=== PATIENT | male | born 1955 | race Caucasian/White ===

== ENCOUNTER 2023-03-03 03:14 | Emergency (ER) | payer OTHER ==
--- OUTSIDE RECORDS SUMMARY | 2023-03-03 03:18 | XMS REPORT | Continuity of Care Document ---
:[address] [facility] t Address [address] [place] [address] Care Team Providers Name Role Phone Raeann Tee MD Primary Care Physician [phone] Gildardo Cronin Attending Clinician Unavailable Doctor Unassigned, [place] Attending Clinician Unavailable SAMSON GALLEGOS Attending Clinician Unavailable Al Coy MD Attending Clinician Samson Gallegos DO Attending Clinician Raeann Tee MD Attending Clinician RAEANN TEE Attending Clinician Unavailable KRISHNA CRUZ Attending Clinician Unavailable KRISHNA CRUZ Attending Clinician Unavailable Najma Fountain RN Attending Clinician Moraima Ruiz DO Attending Clinician Jacqueline Arreaga MD Attending Clinician Gildardo Cronin Admitting Clinician Unavailable SAMSON GALLEGOS Admitting Clinician Unavailable Samson Gallegos DO Admitting Clinician Jacqueline Arreaga MD Admitting Clinician Payers Payer Name Policy Type Policy Number Effective Date Expiration Date Harmeet MARCIAL O [id number] 1590-10-05 00:00:00 Problems Condition Condition Condition Status Onset Resolution Last Treating Co mments Source Name Details Category Date Date Treatment Clinician Date Chest Chest Disease Active Univers pain, pain, 7-12 [place]y [place] type d type 00 Medical [facility] Chronic Chronic Disease Active Univers combined combined 7-12 ity of systolic systolic 00:00: [place] and and 00 Medical diastolic diastolic Bran ch congestive congestive heart heart failure failure Dyslipidem Dyslipidem Disease Active U nivers ia ia 7-14 ity of 00:00: [place] [facility] S/P CABG S/P CABG Disease Active Unive rs (coronary (coronary 7-14 ity of artery artery 00:00: [place] bypass bypass 00 Medical graft) graft) Branch Ventricula Ventricula Disease Active U nivers r r 7-13 ity of tachycardi tachycardi [place] a a 00 [place] Troponin I Troponin I Disease Active U nivers above above 7-01 [place] reference [place] 00:[place] range range 00 [place] 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 [place] Essential Essential Disease Active Uni vers hypertensi hypertensi 2-22 it y of on on 00:00: [place] [facility] Hyperchole Hyperchole Disease Active U nivers sterolemia sterolemia 2-22 it y of 00:00: [place] 00 Medical Branch Acute ND Acute ND Disease Active Unive rs 2-22 ity of 00:00: [place] 00 Medical Branch Coronary Coronary Disease Active Unive rs artery artery 2-22 ity of disease disease 00:00: [place] 00 Medical Branch Allergies, Adverse Reactions, Alerts Allergy Allergy Status Severity Reaction(s) Onset Inactive Treating Comm ents Source Name Type Date Date Clinician No Known DA Active U [facility] Allergie 7-15 [place] 00:00: [facility] 00 [facility] NO KNOWN Drug Active Univers ALLERGIE Class ity of S [facility] Social History Social Habit Start Date Stop Date Quantity Comments Source History of Snuff User University of tobacco use [place] [facility] [place] History [facility] o f Alcohol Frequency [place] M edical Branch History [facility] o f Alcohol Std [place] [facility] Drinks Branch History [facility] o f Alcohol Binge [place] Medic al [place] Exposure to 2022-03-25 2022-04-04 Not sure University SARS-CoV-2 00:00:00 02:07:00 [facility] [place] (event) [place] Tobacco use and 2022-04-04 2022-04-04 User of smokeless Un iversity of exposure 00:00:00 00:00:00 tobacco [facility] Alcohol intake 2022-04-04 2022-04-04 Current University of 00:00:00 00:00:00 non-drinker of [facility] alcohol (finding) [place] Alcohol Comment 2022-04-04 2022-04-04 social / rare Univer sity of 00:00:00 00:00:00 [facility] Sex Ass[birth year] Universit y of 00:00:00 00:00:00 [facility] Smoking Status Start Date Stop Date Source Ex-smoker 2022-04-04 00:00:00 2022-04-04 00:00:00 Universi ty [facility] Medications Ordered Filled Start Stop Current Ordering Indication Dosage Frequency Signature Comments Components Source Medication Medication Date Date Medication? Clinician (SIG) Name Name atoradelso Yes 80mg 80 mg, Univ ers n (LIPITOR) 7-13 Oral, QHS, it y of tablet 80 02:00: [place] mg 00 on [facility] 04/04/22 at Branch 2100, Until Discontinu ed, Routine enoxaparin Yes 40mg 40 mg, Unive rs (LOVENOX) 04-04 Subcutaneo ity of injection 22:00: [place], DAILY, [place] 40 mg 00 First dose Medical on [facility] 04/04/22 at 1700, Until Discontinu ed, Routine sulfur 2021- No [id number] 5mL 5 mL, Unive rs hexafluorid 04-04 Intravenou i ty of e microsphr 20:15: 20:15 s, ONCE, 1 [place] (LUMASON) 00 :00 dose, On Medica l injection 5 [facility] mL 04/04/22 at 1515, Routine
bioinformatics team member approving Restricted medication : JENNIFER NGUYEN aspirin 81 0 Yes 81mg Take 81 mg U nivers mg EC 7-12 by mouth ity of tablet 18:19: daily. [place] [address] Medical Branch atorvastati 0 Yes 80mg Take 80 mg Univers n 80 mg 7-12 by mouth ity of tablet 18:19: at [place] [address] bedtime. Medical Branch losartan 50 0 Yes 50mg Take 50 mg Univers mg tablet 7-12 by mouth ity of 18:19: in the [place] [address] morning. Medical Branch metoprolol Yes 12.5mg Take 12.5 Univers succinate 7-12 mg by ity of XL 25 mg 24 18:19: mouth in [place] hr tablet 28 the Medical morning. Branch aspirin 81 0 Yes 81mg Take 81 mg U nivers mg EC 7-12 by mouth ity of tablet 18:19: daily. [place] [address] Medical Branch atorvastati 0 Yes 80mg Take 80 mg Univers n 80 mg 7-12 by mouth ity of tablet 18:19: at [place] [address] bedtime. Medical Branch losartan 50 0 Yes 50mg Take 50 mg Univers mg tablet 7-12 by mouth ity of 18:19: in the [place] [address] morning. Medical Branch metoprolol Yes 12.5mg Take 12.5 Univers succinate 7-12 mg by ity of XL 25 mg 24 18:19: mouth in [place] hr tablet 28 the Medical morning. Branch metoprolol Yes 12.5mg 12.5 mg, U nivers succinate 7-12 Oral, ity of XL (TOPROL 14:00: DAILY, [place] XL) tablet 00 First dose Med ical 12.5 mg on [facility] 04/04/22 at 0900, Until Discontinu ed, Routine losartan 2021- Yes 50mg 50 mg, Univers (COZAAR) 7-12 Oral, ity of tablet 50 14:00: DAILY, [place] mg 00 First dose Medical on [facility] 04/04/22 at 0900, Until Discontinu ed, Routine clopidogreL 2021-0 Yes 75mg 75 mg, Univ ers (PLAVIX) 75 7-12 Oral, ity of mg tablet 14:00: DAILY, [place] 75 mg 00 First dose Medical on [facility] 04/04/22 at 0900, Until Discontinu ed, Routine aspirin EC Yes 81mg 81 mg, Unive rs tablet 81 04-04 Oral, ity of mg 14:00: DAILY, [place] 00 First dose Medical on [facility] 04/04/22 at 0900, Until Discontinu ed, Routine amiodarone Yes 100mg 100 mg, Uni vers (PACERONE) 04-04 Oral, ity of tablet 100 14:00: DAILY, [place] mg 00 First dose Medical on [facility] 04/04/22 at 0900, Until Discontinu ed, Routine nitroglycer Yes .4mg 0.4 mg, Uni vers in 04-04 Sublingual ity of (NITROSTAT) 09:49: , Q5MIN Alex[place] as sublingual 49 PRN, Medical tablet 0.4 Starting Branc h mg on [facility] 04/04/22 at 0449, Until Discontinu ed, Routine, Chest pain morpHINE (2 2021- No 2mg 2 mg, Slow Univers mg/mL) 04-04 0713 IV Push, ity of injection 2 09:48: 09:47 Q4HPRN, [place] mg 16 :16 Starting Medical on [facility] 04/04/22 at 0448, Until Sun04/05/22 at 0447, Routine, Pain (scale 7-10) acetaminoph 2021- No 1{tbl} 1 tablet, Univers en-codeine 04-0414 Oral, ity of (TYLENOL 09:48: 09:47 Q6HPRN, [place] #3) 300-30 08 :08 Starting Medic al mg tablet 1 on [facility] tablet 04/04/22 at 0448, Until [place] 04/06/22 at 0447, Routine, Pain (scale 4-6) acetaminoph Yes 650mg 650 mg, Un jonny en 04-04 Oral, ity of (TYLENOL) 09:48: Q6HPRN, [place] tablet 650 05 Starting Medic al mg on [facility] 04/04/22 at 0448, Until Discontinu ed, Routine, Pain (scale 1-3) metoprolol 2021-0 2021- No 25mg Take 25 mg Univers tartrate 25 04-04 by mouth 2 i ty of mg tablet 04:43: 00:00 (two) [place] 58 :00 times Medical daily. Branch TRAZODONE 2021-0 Yes [id number] TAKE 1 Univers 50 mg 2-18 105 TABLET BY ity of tablet 00:00: MOUTH [place] 00 EVERYDAY Medical AT BEDTIME Branch TRAZODONE 2021-0 Yes [id number] TAKE 1 Univers 50 mg 2-18 105 TABLET BY ity of tablet 00:00: MOUTH [place] 00 EVERYDAY Medical AT BEDTIME Branch TRAZODONE 2021-0 Yes [id number] TAKE 1 Univers 50 mg 2-18 105 TABLET BY ity of tablet 00:00: MOUTH [place] 00 EVERYDAY Medical AT BEDTIME Branch TRAZODONE 2021-0 Yes [id number] TAKE 1 Univers 50 mg 2-18 105 TABLET BY ity of tablet 00:00: MOUTH [place] 00 EVERYDAY Medical AT BEDTIME Branch TRAZODONE 2021-0 2- No [id number] TAKE 1 Univers 50 mg 2-18 -12 105 TABLET BY ity of tablet 00:00: 00:00 MOUTH [place] 00 :00 EVERYDAY Medical AT BEDTIME Branch gabapentin 2021-0 Yes [id number] 300mg Take 1 U nivers 300 mg 2-03 capsule by ity of capsule 00:00: mouth at [place] [address] bedtime. Medical Branch gabapentin 2021-0 Yes [id number] 300mg Take 1 U nivers 300 mg 2-03 capsule by ity of capsule 00:00: mouth at [place] [address] bedtime. Medical Branch gabapentin 2-0 Yes [id number] 300mg Take 1 U nivers 300 mg 2-03 capsule by ity of capsule 00:00: mouth at [place] [address] bedtime. Medical Branch gabapentin 2-0 Yes [id number] 300mg Take 1 U nivers 300 mg 2-03 capsule by ity of capsule 00:00: mouth at [place] [address] bedtime. Medical Branch gabapentin 2-0 Yes [id number] 300mg Take 1 U nivers 300 mg 2-03 capsule by ity of capsule 00:00: mouth at [place] [address] bedtime. Medical Branch gabapentin 2-0 2022- No [id number] 300mg Take 1 Univers 300 mg 2-03 -12 capsule by ity of capsule 00:00: 00:00 mouth at [place] 00 :00 bedtime. Medical Branch losartan 25 Yes 25mg Take 25 mg Univers mg tablet - by mouth ity of 11:20: daily. [address] losartan 25 0 Yes 25mg Take 25 mg Univers mg tablet - by mouth ity of 11:20: daily. [address] losartan 25 Yes 25mg Take 25 mg Univers mg tablet - by mouth ity of 11:20: daily. [address] losartan 25 Yes 25mg Take 25 mg Univers mg tablet - by mouth ity of 11:20: daily. [address] losartan 25 Yes 25mg Take 25 mg Univers mg tablet - by mouth ity of 11:20: daily. [address] losartan 25 Yes 25mg Take 25 mg Univers mg tablet - by mouth ity of 11:20: daily. [address] losartan 25 Yes 25mg Take 25 mg Univers mg tablet - by mouth ity of 11:20: daily. [place] [address] Medical Branch traZODone Yes [id number] 50mg Take 1 Univers 50 mg 1-27 105 tablet by ity of tablet 00:00: mouth at [place] [address] bedtime. Medical Branch traZODone Yes [id number] 50mg Take 1 Univers 50 mg 1-27 105 tablet by ity of tablet 00:00: mouth at [place] [address] bedtime. Medical Branch traZODone Yes [id number] 50mg Take 1 Univers 50 mg 1-27 105 tablet by ity of tablet 00:00: mouth at [place] 00 bedtime. Medical Branch traZODone 2021- No [id number] 50mg Take 1 Univers 50 mg 1-27 -18 105 tablet by ity of tablet 00:00: 00:00 mouth at [place] 00 :00 bedtime. Medical Branch cefUROXime 2019-09- No [id number] 500mg Take 1 Univers 500 mg 0-22 - tablet by ity of tablet 00:00: 00:00 mouth 2 [place] 00 :00 (two) Medical times Branch daily. pregabalin 2019-09- No [id number] 150mg Take 1 Univers (LYRICA) 010-20 capsule by ity of 150 mg 00:00: 00:00 mouth 2 [place] capsule 00 :00 (two) Medical times Branch daily. cefUROXime 2019-09- No [id number] 500mg Take 1 Univers 500 mg 010-20 tablet by ity of tablet 00:00: 00:00 mouth 2 [place] 00 :00 (two) Medical times Branch daily. pregabalin 2019-09- No [id number] 150mg Take 1 Univers (LYRICA) 010-20 capsule by ity of 150 mg 00:00: 00:00 mouth 2 [place] capsule 00 :00 (two) Medical times [place] daily. atorvastati 2019-09 Yes 80mg Take 80 mg Univers n 80 mg 0-05 by mouth ity of tablet 11:07: at [place] [address] bedtime. Medical Branch metoprolol 2019-09 Yes 25mg Take 25 mg U nivers tartrate 25 0-05 by mouth 2 it y of mg tablet 11:07: (two) [place] [address] times Medical daily. Branch atorvastati 2019-09 Yes 80mg Take 80 mg Univers n 80 mg 0-05 by mouth ity of tablet 11:07: at [place] [address] bedtime. Medical Branch metoprolol 2019-09 Yes 25mg Take 25 mg U nivers tartrate 25 0-05 by mouth 2 it y of mg tablet 11:07: (two) [place] [address] times Medical daily. Branch atorvastati 2019-09 Yes 80mg Take 80 mg Univers n 80 mg 0-05 by mouth ity of tablet 11:07: at [place] [address] bedtime. Medical Branch metoprolol 2019-09 Yes 25mg Take 25 mg U nivers tartrate 25 0-05 by mouth 2 it y of mg tablet 11:07: (two) [place] [address] times Medical daily. Branch atorvastati 2019-09 Yes 80mg Take 80 mg Univers n 80 mg 0-05 by mouth ity of tablet 11:07: at [place] [address] bedtime. Medical Branch metoprolol 2019-09 Yes 25mg Take 25 mg U nivers tartrate 25 0-05 by mouth 2 it y of mg tablet 11:07: (two) [place] [address] times Medical daily. Branch atorvastati 2019-09 Yes 80mg Take 80 mg Univers n 80 mg 0-05 by mouth ity of tablet 11:07: at [place] [address] bedtime. Medical Branch metoprolol 2020- Yes 25mg Take 25 mg U nivers tartrate 25 0-05 by mouth 2 it y of mg tablet 11:07: (two) [place] [address] times Medical daily. Branch atorvastati 2020- Yes 80mg Take 80 mg Univers n 80 mg 0-05 by mouth ity of tablet 11:07: at [place] [address] bedtime. Medical Branch metoprolol 2020- Yes 25mg Take 25 mg U nivers tartrate 25 0-05 by mouth 2 it y of mg tablet 11:07: (two) [place] [address] times Medical daily. Branch atorvastati 2020- Yes 80mg Take 80 mg Univers n 80 mg 0-05 by mouth ity of tablet 11:07: at [place] [address] bedtime. Medical Branch metoprolol 2020- Yes 25mg Take 25 mg U nivers tartrate 25 0-05 by mouth 2 it y of mg tablet 11:07: (two) [place] [address] times Medical daily. Branch aspirin 2020- Yes 81mg Take 81 mg Univ ers (ASPIRIN 0-05 by mouth ity of LOW DOSE) 11:07: daily. [place] 81 mg EC 51 Medical tablet Branch aspirin 2020- Yes 81mg Take 81 mg Univ ers (ASPIRIN 0-05 by mouth ity of LOW DOSE) 11:07: daily. [place] 81 mg EC 51 Medical tablet Branch aspirin 2020- Yes 81mg Take 81 mg Univ ers (ASPIRIN 0-05 by mouth ity of LOW DOSE) 11:07: daily. [place] 81 mg EC 51 Medical tablet Branch aspirin 2020- Yes 81mg Take 81 mg Univ ers (ASPIRIN 0-05 by mouth ity of LOW DOSE) 11:07: daily. [place] 81 mg EC 51 Medical tablet Branch aspirin 2020- Yes 81mg Take 81 mg Univ ers (ASPIRIN 0-05 by mouth ity of LOW DOSE) 11:07: daily. [place] 81 mg EC 51 Medical tablet Branch aspirin 2020- Yes 81mg Take 81 mg Univ ers (ASPIRIN 0-05 by mouth ity of LOW DOSE) 11:07: daily. [place] 81 mg EC 51 Medical tablet Branch aspirin 2020- Yes 81mg Take 81 mg Univ ers (ASPIRIN 0-05 by mouth ity of LOW DOSE) 11:07: daily. [place] 81 mg EC 51 Medical tablet Branch amiodarone 2020-0 Yes 200mg Take 200 Un jonny 200 mg 7-16 mg by ity of tablet 00:00: mouth 2 (two) Medical times Branch daily. amiodarone 2020-0 Yes 200mg Take 200 Un jonny 200 mg 7-16 mg by ity of tablet 00:00: mouth 2 (two) Medical times Branch daily. amiodarone 2020-0 Yes 200mg Take 200 Un jonny 200 mg 7-16 mg by ity of tablet 00:00: mouth 2 (two) Medical times Branch daily. amiodarone 2020-0 Yes 200mg Take 200 Un jonny 200 mg 7-16 mg by ity of tablet 00:00: mouth (two) Medical times Branch daily. amiodarone 2020-0 Yes 200mg Take 200 Un jonny 200 mg 7-16 mg by ity of tablet 00:00: mouth (two) Medical times Branch daily. amiodarone 2020-0 Yes 200mg Take 200 Un jonny 200 mg 7-16 mg by ity of tablet 00:00: mouth (two) Medical times Branch daily. amiodarone 2020-0 Yes 200mg Take 200 Un jonny 200 mg 7-16 mg by ity of tablet 00:00: mouth (two) Medical times Branch daily. amiodarone 2020-0 Yes 100mg Take 100 Un jonny 200 mg 7-16 mg by ity of tablet 00:00: mouth in [place] 00 the Medical morning. Branch amiodarone 2020-0 Yes 100mg Take 100 Un jonny 200 mg 7-16 mg by ity of tablet 00:00: mouth in [place] 00 the Medical morning. Branch clopidogrel 2019-0 Yes [id number] 75mg Take 1 Univers 75 mg 7-31 tablet by ity of tablet 00:00: mouth [place] 00 daily. Medical Branch clopidogrel 2019-0 Yes [id number] 75mg Take 1 Univers 75 mg 7-31 tablet by ity of tablet 00:00: mouth [place] 00 daily. Medical Branch clopidogrel 2019-0 Yes [id number] 75mg Take 1 Univers 75 mg 7-31 tablet by ity of tablet 00:00: mouth [place] 00 daily. Medical Branch clopidogrel 2019-0 Yes [id number] 75mg Take 1 Univers 75 mg 7-31 tablet by ity of tablet 00:00: mouth [place] 00 daily. Medical Branch clopidogrel 2018- Yes [id number] 75mg Take 1 Univers 75 mg 7-31 tablet by ity of tablet 00:00: mouth [place] 00 daily. Medical Branch clopidogrel 2018- Yes [id number] 75mg Take 1 Univers 75 mg 7-31 tablet by ity of tablet 00:00: mouth [place] 00 daily. Medical Branch clopidogrel 2018- Yes [id number] 75mg Take 1 Univers 75 mg 7-31 tablet by ity of tablet 00:00: mouth [place] 00 daily. Medical Branch clopidogrel 2018- Yes [id number] 75mg Take 1 Univers 75 mg 7-31 tablet by ity of tablet 00:00: mouth [place] 00 daily. Medical Branch clopidogrel 2018- Yes [id number] 75mg Take 1 Univers 75 mg 7-31 tablet by ity of tablet 00:00: mouth [place] 00 daily. Medical Branch losartan 50 2018-2- No [id number] 50mg Take 1 Univers mg tablet 7-24 10- tablet by ity of 00:00: 00:00 mouth [place] 00 :00 daily. Medical Branch losartan 50 2018-0 2021- No [id number] 50mg Take 1 Univers mg tablet 7-24 10- tablet by ity of 00:00: 00:00 mouth [place] 00 :00 daily. Medical Branch Vital Signs Vital Name Observation Time Observation Value Comments Source Systolic blood 2022-04-04 22:00:00 147 mm[Hg] Univer sity of pressure [facility] Diastolic blood 2022-04-04 22:00:00 66 mm[Hg] [facility] Heart rate 2022-04-04 22:00:00 58 /min [facility] Respiratory rate 2022-04-04 22:00:00 13 /min [facility] Oxygen saturation in 2022-04-04 22:00:00 96 /min [facility] Arterial blood by [facility] Pulse oximetry Branch Body temperature 2022-04-04 20:00:00 37.11 [facility] Body height 2022-04-04 18:54:00 177.8 cm [facility] Body weight 2022-04-04 18:54:00 83.9 kg [facility] BMI 2022-04-04 18:54:00 26.54 kg/m2 [facility] Systolic blood 2021-10-20 17:18:00 126 mm[facility]Hg[facility] 2021-10-20 17:18:00 76 mm[Hg] [facility] Heart rate 2021-10-20 17:18:00 60 /min [facility] Body temperature 2021-10-20 17:18:00 36.83 [place] [facility] Body height 2021-10-20 17:18:00 177.8 cm [facility] Body weight 2021-10-20 17:18:00 82.101 kg [facility] BMI 2021-10-20 17:18:00 25.97 kg/m2 [facility] Procedures Procedure Date / Time Performing Clinician Source Performed REFERRAL- 2022-09-05 06:01:00 Doctor Unassigned, [facility] REQUEST/RESPONSE [place] [facility] TROPONIN I 2022-04-04 21:28:00 Jair [facility] TRANSTHORACIC ECHO (TTE) 2022-04-04 20:00:07 Samson Gallegos [facility] COMPLETE W/ CONTRAST Medical [facility] TROPONIN I 2022-04-04 13:29:00 Jair [facility] XR CHEST 1 VW 2022-04-04 07:20:00 Al Coy [facility] HB ECG ROUTINE & RHYTHM 2022-04-04 07:18:37 Al Coy [facility] STRIP [facility] Branch LIPASE 2022-04-04 07:13:00 Al Coy [facility] TROPONIN I 2022-04-04 07:13:00 Al Coy [facility] COMP. METABOLIC PANEL 2022-04-04 07:13:00 Al Coy [facility] ([id number]) [facility] CBC WITH DIFF 2022-04-04 07:13:00 Al Coy [facility] PROTHROMBIN TIME / INR 2022-04-04 07:13:00 [facility] PART[facility] 2022-04-04 07:13:[address] [facility] THRMPLAS [facility] N-TERMINAL PRO-BNP 2022-04-04 07:13:00 Al Coy [facility] COVID-19 (ID NOW RAPID 2022-04-04 07:13:00 [facility] Medical Branch LAB ONLY COVID 2022-04-04 07:13:00 Al Coy [place] [facility] [place] INTERPRETATION [facility] EXTERNAL PROVIDER RECORDS 2022-02-11 05:01:00 Doctor Unassigned, [facility] [place] [facility] REFERRAL- 2021-12-26 05:01:00 Doctor Unassbridget, [facility] REQUEST/RESPONSE [place] [facility] [id number] 2020-04-07 00:00:00 LOYPR [facility] [id number] 2020-04-07 00:00:00 LOYPR [facility] [id number] 2020-04-07 00:00:00 LOYPR [facility] [id number] 2020-04-07 00:00:00 LOYPR [facility] Encounters Start End Encounter Admission Attending Care Care Encounter Source Date/Time Date/Time Type Type Clinicians Facility Department ID 2021-07-22 Emergency [facility] [id number] [facility] DONG Cronin [facility].01 [id number] [facility] 01:05:00 Gildardo Aparicio [facility] 2022-09-05 2022-09-05 Orders Doctor [place] [id number] Univers 00:00:00 00:00:00 Only UnassignedLAURA [id number] ity of [place] [facility] [id number] Alexis as [phone] [address] 2022-04-04 2022-04-04 Outpatient Susie [facility]OS [facility] VICKIE [id number] Univers 02:06:00 18:10:00 SAMSON ity [facility] 2022-04-04 2022-04-04 Emergency Al [facility] 1.2.840. [id number] Univers 02:06:00 18:10:00 Samson Gallegos [id number] ity of [place] [id number] [place] [id number] [facility] [address] [place] 2022-02-11 2022-02-11 Orders Doctor HARME[place] [id number] Univers 00:00:00 00:00:00 Only Unassigned, LAURA [id number] ity of [place] [facility] [id number] La[place] as [id number] [address] 2022-02-03 2022-02-03 Telephone [facility] [id number] Univers 00:00:00 00:00:00 Raeann HEALTH [id number] it y of [place] 4.2.7.2.686 Alexis as MEENAKSHI?BLEA [phone] [address] MEDICAL OFFICE [facility] 2021-12-26 2021-12-26 Orders Doctor [place] [id number] [id number] Univers 00:00:00 00:00:00 Only Unassigned, LAURA [id number] ity of [place] [facility] [id number] Alexis as [phone] [address] 2021-11-11 2021-11-11 Refill [facility] [id number] Univers 00:00:00 00:00:00 Raeann HEALTH [id number] it y of [place] [id number] Alexis as MEENAKSHI?BLEA [id number] [address] MEDICAL OFFICE [facility] 2021-10-27 2021-10-27 Telephone [facility] [id number] Univers 00:00:00 00:00:00 Raeann HEALTH [id number] it y of [place] [id number] Alexis as MEENAKSHI?BLEA [phone] [address] OFFICE [facility] 2021-10-20 2021-10-20 Office [facility] [id number] Univers 11:15:00 11:30:00 Visit [facility] [id number] it y of [place] [id number] Alexis as MEENAKSHI?BLEA [id number] [place] ildefonsoevaristo MENJIVAR [address] [place] MEDICAL OFFICE BUILDING 2021-10-20 2021-10-20 [facility] [id number] Univers 11:15:00 11:15:00 [facility] 2021-10-20 2021-10-20 Outpatient R [facility] [id number] Univers 11:15:00 11:15:00 [facility] 2021-02-04 2021-02-04 Orders Doctor HARMEET 1.2.840.114 [id number] Univers 00:00:00 00:00:00 Only Unassigned, LAURA 350.1.13.10 ity of [facility] 4.2.7.2.686 Alexis as [phone] [address] 2020-10-01 2020-10-01 Orders Doctor HARMEET 1.2.840.114 [id number] Univers 00:00:00 00:00:00 Only Unassigned, LAURA 350.1.13.10 ity of [facility] 4.2.7.2.686 Alexis as [phone] [address] 2020-08-06 2020-08-06 Outpatient KRISHNA ALEXANDER [facility] [id number] Univers 10:00:00 10:00:00 KRISHNA CRUZ [facility] 2020-07-21 2020-07-21 Telephone [facility] 1.2.840.114 [id number] Univers 00:00:00 00:00:00 [facility] 350.1.13.10 it y of [place] 4.2.7.2.686 Alexis as Professio [phone] [place] ildefonsoevaristo michele [address] [place] [address] Office [facility] 2020-07-19 2020-07-19 Telephone [facility] 1.2.840.114 [id number] Univers 00:00:00 00:00:00 [facility] 350.1.13.10 it y of [place] 4.2.7.2.686 Alexis as Professio [phone] [address] Office [facility] 2020-07-15 2020-07-15 Outpatient [facility] [id number] Univers 09:00:00 09:00:00 [facility] 2020-07-15 2020-07-15 Telemedici [facility] 1.2.840.114 [id number] Univers 08:07:26 08:22:26 ne Visit [facility] [id number] i ty of [place] 4.2.7.2.686 Alexis as Professio [phone] [address] Office [facility] 2020-07-10 2020-07-10 Telephone [facility] 1..840.114 [id number] Univers 00:00:00 00:00:00 [facility] [id number] it y of [place] 4.2.7.2.686 Alexis as Professio [phone] [address] Office [facility] 2020-06-28 2020-06-28 Office [facility] 1.2.840.114 [id number] Univers 10:41:58 10:56:58 Visit [facility] 350.1.13.10 it y of [place] 4.2.7.2.686 Alexis as Professio [phone] [address] Office [facility] 2020-06-28 2020-06-28 Outpatient [facility] [id number] Univers 10:45:00 10:45:00 [facility] 2020-06-18 2020-06-18 Telephone [facility] ..840.114 [id number] Univers 00:00:00 00:00:00 [facility] 350.1.13.10 it y of [place] 4.2.7.2.686 Alexis as Professio [phone] [address] Office [facility] 2020-06-16 2020-06-16 Outpatient [facility] [id number] Univers 15:45:00 15:45:00 RAEANN ity of [facility] 2020-06-16 2020-06-16 Office [facility] 1.2.840.114 [id number] Univers 15:28:02 15:43:02 Visit [facility] 350.1.13.10 it y of [place] 4.2.7.2.686 Alexis as Professio [phone] [address] Office [facility] 2020-06-14 2020-06-14 Telephone [facility] 1.2.840.114 [id number] Univers 00:00:00 00:00:00 [facility] 350.1.13.10 it y of [place] 4.2.7.2.686 Alexis as Professio [phone] [address] Office [facility] 2020-04-15 2020-04-15 Telephone [facility] 1.2.840.114 [id number] Univers 00:00:00 00:00:00 Raeann [place] 350.1.13.10 i [place] Profess[place] [phone] [address] 2020-04-14 2020-04-14 Orders Doctor HARMEET 1.2.840.114 [id number] Univers 00:00:00 00:00:00 Only Unassigned, LAURA 350.1.13.10 ity of [facility] 4.2.7.2.686 Alexis as [phone] [facility] [address] 2020-04-08 2020-04-08 Transition Yareli Fountain 1.2.840.114 [id number] Univers 00:00:00 00:00:00 of Care Najma Kevin 350.1.13.10 i [place] [phone] [facility] [address] 2020-04-05 2020-04-07 Hospital Moraima Ruiz [facility] 1.2.84 0.114 [id number] Univers 20:47:26 00:00:00 Encounter Jacqueline Arreaga 350.1.13.10 ity of [place] [phone] [facility] [address] 2019-04-23 2019-04-23 Office Nay [facility] 1.2.840.114 [id number] [facility] 07:42:37 14:32:24 Visit Raeann Erwin 350.1.13.10 it y of [place] 4.2.7.2.686 Alexis as [place] [phone] [place] dical [facility] [address] [place] Office [address] 2019-04-23 2019-04-23 Outpatient R NAY [facility] [id number] Univers 08:00:00 08:29:33 RAEANN itfabricio [facility] 2019-04-23 2019-04-23 Orders Doctor HARMEET 1.2.840.114 [id number] Univers 00:00:00 00:00:00 Only Unassigned, LAURA 350.1.13.10 ity of [place] [facility] 4.2.7.2.686 Alexis as [phone] [facility] [address] [place] Results Test Description Test Time Test Comments Results Result Comments Source Transthoracic echo (TTE) 2022-04-04 22:07:43 Test Item Value Reference Range Interpretation Comme nts Height (test code = 8338774143) in Weight (test code = 0749309135) lbs Systolic BP (test code = 8140595440) mmHg Diastolic BP (test code = 6453901166) mmHg Heart Rate (test code = 2207237942) bpm BSA (test code = 2987457709) 2.02 m2 LVIDD (test code = 1224144472) 5.60 cm IVS (test code = 8666785821) 1.10 cm Interventricular Septum Diastolic 1.10 cm Thickness by 2D (test code = 0485209) LVPWD (test code = 4744458850) 1.00 cm PW (test code = 2502629254) 1.00 cm 0.6-1.1 EF(Teich) (test code = 1498315650) 31.30 % LVIDS (test code = 3655420507) 4.80 cm FS (test code = 0698490061) 15 % EF - 2D (test code = 55158930) 31.30 % LAV(MOD-sp4) (test code = 8048050391) 59.00 mL E wave decelartion time (test code = 0.34 s 4113687912) MV Peak E Harpreet (test code = 1426797263) 46.6 cm/s MV Peak A Harpreet (test code = 8419721768) 69.0 cm/s E/A ratio (test code = 8016465155) ratio MV E/e' septal (test code = 7.4 cm/s 3931269727) Aortic valve mean velocity (test code 77.9 cm/s = 1999582673) Ao peak harpreet (test code = 1257377388) 119.8 cm/s Ao VTI (test code = 4277220486) 26.3 cm Ao max PG (test code = 4009996640) 5.70 mm[Hg] AV peak gradient (test code = mmHg 6343896000) AV mean gradient (test code = mmHg 3015343521) LVOT peak harpreet (test code = 2352302865) 107.4 cm/s LVOT mn grad (test code = 7690285266) mmHg AV LVOT peak gradient (test code = mmHg 1666297715) LVOT peak VTI (test code = 4673026138) 21.8 cm LV V1 mean (test code = 3639844285) 63.50 cm/s LA Volume Index (BP) (test code = 30.2 mL/m2 5545746434) LA volume (BP) (test code = 60.9 mL 8439031894) LAV(MOD-sp2) (test code = 7605560047) 54.20 mL LVOT stroke volume (test code = 90.10 cm3 8561696228) LVOT diameter (test code = 0859860584) 2.30 cm LA size (test code = 1177639909) 4.4 cm AV area by cont VTI (test code = 3.4 cm2 0569662736) AV area peak harpreet (test code = 3.7 cm2 1738521878) ACS (test code = 6546305798) 2.35 cm Ao root annulus (test code = 3.9 cm 7317397123) Ao root diam (test code = 4146684762) 3.90 cm Aortic root (test code = 1976085045) 3.9 cm AV valve area (test code = 8298074684) 3.40 cm2 Radiology Study observation (narrative) (test code = 59431-7) AN (test code = AN) Formatting of this result is different from the original. ?Left?Ventricle: Left ventricle is moderately dilated. Mildly increased wall thickness. ?Pulmonic?Valve: Pulmonic valve is normal in structure and func tion. ?Mitral?Valve: Mitral valve structure is normal. Mildly thickened leaflets. ?Tricuspid?Valve: Tricuspid valve structure is normal. Insufficient tricuspid regurgitation jet to estimate RVSP, but probably normal.Trace transvalvular regurgitation. Right ventricular systolic pressure is normal. ?RA pressure is 0-5 mmHg. Left VentricleLeft ventricle is moderately dilated. Mildly increased wall thickness. Regional wall motion abnormalities present. Reduced systolic function with a visually estimated EF of 30 - 40%. There is impaired relaxation.Right VentricleRight ventricle size is normal. Mildly reduced systolic function.Left AtriumLeft atrium is moderately dilated.Right AtriumRight atrium size is normal.Mitral ValveMitral valve structure is normal. Mildly thickened leaflets. Trace transvalvular regurgitation.Tricuspid ValveTricuspid valve structure is normal. Insufficient tricuspid regurgitation jet to estimate RVSP, but probably normal.Trace transvalvular regurgitation. Right ventricular systolic pressure is normal. RA pressure is 0-5 mmHg.Aortic ValveAortic valve structure is normal. Mildly calcified cusps. No transvalvular regurgitation. No evidence of aortic stenosis.Pulmonic ValveNot well visualized. Pulmonic valve is normal in structure and function. Trace transvalvular regurgitation.Ascending AortaMildly enlarged annulus, sinus of Valsalva and ascending aorta.PericardiumThe pericardium is normal. No pericardial effusion.Study DetailsStudy quality was adequate. A complete echocardiogram was performed using 2D, color flow Doppler and spectral Doppler. 5 mL of Lumason ultrasound enhancing agent used.Wall Scoring BaselineScore Index: 1.24The following segments are akinetic: basal inferoseptal.The following segments are hypokinetic: basal inferior and basal inferolateral.All other segments are normal. [facility] [id number] 07:57:45 Test Item Value Reference Interpretation Comments Range TROPONIN I (test 0.009 ng/mL See_Comment [Automated code = 6892250422) message] The system which generated this result transmitted reference range : <=0.034. The reference range was not used to interpret this result as normal/abnormal . NA (test code = Reference (Normal) AN) Range (defined by the 99th percentile reference limit): <= 0.034 ng/mL Note: Cardiac troponin begins to rise 3-4 hours after the onset of ischemia. Repeat in 4-6 hours if the sample was drawn within 3-4 hours of the onset of the symptom and found normal. Diagnosis of myocardial injury is made with acute changes in cTn concentrations with at least one serial sample above the 99th percentile upper reference limit (URL), taken together with the patient's clinical presentation. Biotin has been reported to cause a negative bias, interpret results relative to patient's use of biotin. Lab Interpretation Normal (test code = 79535-6) [facility]MINAL [id number] 07:50:13 Test Item Value Reference Range Interpretation Comments NT-proBNP (test code 111 pg/mL See_Comment [Autom ated = 8636389370) message] The system which generated this result transmitted reference range : <=125. The reference range was not used to interpret this result as normal/abnormal . AN (test code = AN) Biotin has been reported to cause a negative bias, interpret results relative to patient's use of biotin. Lab Interpretation Normal (test code = 84750-3) [facility] THRMPLAS [id number] 07:41:54 Test Item Value Reference Range Interpretation Comments APTT Patient (test See_Comment [Automat ed code = 3173-2) message] The system which generated this result transmitted reference range : 23 - 38 Seconds . The reference range was not used to interpr et this result as normal/abnormal . AN (test code = AN) The [facility] patient population mean normal value for aPTT is 30 seconds. Lab Interpretation Normal (test code = 94489-3) [facility]. MET[facility]OLIC PANEL (32309)2022-04-04 07:41:54 Test Item Value Reference Range Interpretation Comments NA (test code = 136 mmol/L 135-145 7678930674) K (test code = 3.9 mmol/L 3.5-5 5775271551) CL (test code = 103 mmol/L 98-108 1832757687) CO2 TOTAL (test code = 24 mmol/L 23-31 6674860499) AGAP (test code = 2-16 7728827784) BUN (test code = 8 mg/dL 7-23 1810084408) GLUCOSE (test code = 115 mg/dL 70-110 H 8381664503) CREATININE (test code = 0.97 mg/dL 0.6-1.25 8556409854) TOTAL BILI (test code = 0.7 mg/dL 0.1-1.2 7008343759) CALCIUM (test code = 9.5 mg/dL 8.6-10.6 1983874569) T PROTEIN (test code = 6.9 g/dL 6.3-8.2 1780846953) ALBUMIN (test code = 4.5 g/dL 3.5-5 3209652498) ALK PHOS (test code = 73 U/L 34-122 3122154009) ALTv (test code = 29 U/L 5-50 2-6) AST(SGOT) (test code = 23 U/L 13-40 3056379257) eGFR (test code = mL/min/1.73m2 6658896333) AN (test code = AN) Association of Glomerular Filtration Rate (GFR) and Staging of Kidney Disease* + --+ --+ ------+| GFR (mL/min/1.73 m2) ?| With Kidney Damage ?| ?Without Kidney Damage+ --------+ --------+ +| ?>90 ?| ?Stage one ?| ? Normal ?+ ---+ ---+ -------+| ?60-89 ?| ?Stage two ?| ? Decreased GFR ? + --+ --+ ------+| ?30-59 ?| ?Stage three ?| ? Stage three ? + --+ --+ ------+| ?15-29 ?| ?Stage four ? | ? Stage four ?+ ---+ ---+ -------+| ?<15 (or dialysis) ? ?| ?Stage five ? | ? Stage five ?+ ---+ ---+ -------+ *Each stage assumes the associated GFR level has been in effect for at least three months. ?Stages 1 to 5, with or without kidney disease, indicate chronic kidney disease. Notes: Determination of stages one and two (with eGFR >59mL/min/1.73 m2) requires estimation of kidney damage for at least three months as defined by structural or functional abnormalities of the kidney, manifested by either:Pathological abnormalities or Markers of kidney damage (including abnormalities in the composition of the blood or urine or abnormalities in imaging tests). Lab Interpretation Abnormal (test code = 99066-7) [facility] Hospital[facility]IPASE2022-[facility]-12 07:41:54 Test Item Value Reference Range Interpretation Comments LIPASE (test code = 4047084655) 589 U/L 0-220 H Lab Interpretation (test code = Abnormal 88003-1) [facility] HospitalPROTHROMBIN TIME / [id number] 07:38:53 Test Item Value Reference Range Interpretation Comments PROTIME PATIENT (test See_Comment [Auto mated message] code = 5964-2) The system GPal ich generated this result transmitted ref erence range: 12.0 - 1 4.7 Seconds. The re ference range was not u sed to interpret this result as normal/abnor mal. INR (test code = 6301-6) Nor mal INR <1.1; Warfarin Therap eutic range 2.0 to 3. 0 or 2.5 to 3.5, dep ending upon the indica tions. Lab Interpretation (test Normal code = 13003-7) [facility] HospitalCB WITH [id number] 07:26:53 Test Item Value Reference Range Interpretation Comments WBC (test code = See_Comment [Automated 6690-2) message] The sy stem which generated this result transmitted reference range : 4.20 - 10.70 10*3/?L. The reference range was not used to interpret this result as normal/abnormal . RBC (test code = See_Comment [Automated 449-8) message] The sy stem which generated this result transmitted reference range : 4.26 - 5.52 10*6/?L. The reference range was not used to interpret this result as normal/abnormal . HGB (test code = 14.7 g/dL 12.2-16.4 718-7) HCT (test code = 41.5 % 38.4-49.3 4544-3) MCV (test code = 90.0 fL 81.7-95.6 787-2) MCH (test code = 31.9 pg 26.1-32.7 785-6) MCHC (test code = 35.4 g/dL 31.2-35 H 786-4) RDW-SD (test code = 40.2 fL 38.5-51.6 97621-9) RDW-CV (test code = 12.2 % 12.1-15.4 788-0) PLT (test code = See_Comment [Automated 777-3) message] The sy stem which generated this result transmitted reference range : 150 - 328 10*3/ ?L. The reference r fredi was not used to interpret this result as normal/abnormal . MPV (test code = 10.0 fL 9.8-13 87737-8) NRBC/100 WBC (test See_Comment [Automat ed code = 7755528212) message] The system which generated this result transmitted reference range : 0.0 - 10.0 /100 WBCs. The refer ence range was not u sed to interpret th is result as normal/abnormal . NRBC x10^3 (test code See_Comment [Auto mated = 4060315972) message] The s ystem which generated this result transmitted reference range : 10*3/?L. The reference range was not used to interpret this result as normal/abnormal . GRAN MAT (NEUT) % 66.9 % (test code = 770-8) IMM GRAN % (test code 0.20 % = 2746963357) LYMPH % (test code = 23.5 % 736-9) MONO % (test code = 8.8 % 5905-5) EOS % (test code = 0.2 % 713-8) BASO % (test code = 0.4 % 706-2) GRAN MAT x10^3(ANC) 3.36 10*3/uL 1.99-6.95 (test code = 9251302053) IMM GRAN x10^3 (test 0-0.06 code = 1404845769) LYMPH x10^3 (test code 1.18 10*3/uL 1.09-3.23 = 731-0) MONO x10^3 (test code 0.44 10*3/uL 0.36-1.02 = 742-7) EOS x10^3 (test code = 0.06-0.53 L 711-2) BASO x10^3 (test code 0.01-0.09 = 704-7) Lab Interpretation Abnormal (test code = 90164-4) [facility] HospitalCOMPRE[facility]ENSIVE METABOLIC [id number] 05:56:00 Test Item Value Reference Range Interpretation Comments SODIUM (test code = 139 MMOL/L 136-143 N NA) POTASSIUM (test 4.2 MMOL/L 3.5-5.1 N code = K) CHLORIDE (test code 105 MMOL/L 98-107 N = CL) CARBON DIOXIDE 22 mmol/L 24-31 L (test code = CO2) GLUCOSE (test code 100 mg/dL 70-104 N = GLU) BLOOD UREA NITROGEN 8.2 MG/DL 7.0-21.0 N (test code = BUN) GLOMERULAR >=60 max >60 The estimated FILTRATION RATE estimate glomerular (test code = GFR) filtration rate is computed usingpatient ra ce, age (>18), sex, and serum creatinin e. If anyof the ne eded data elements a re missing the Laboratory agata ot compute an estimation of t he glomerular filtration rate . CREATININE (test 1.0 mg/dL 0.8-1.5 N code = CREAT) TOTAL PROTEIN (test 6.9 g/dL 6.3-8.3 N code = PROT) ALBUMIN (test code 4.5 G/DL 3.5-5.0 N = ALB) CALCIUM (test code 9.4 mg/dL 8.8-10.2 N = CA) BILIRUBIN TOTAL 0.9 mg/dL 0.2-1.0 N (test code = BILT) SGOT/AST (test code 25 IU/L 10-34 N = AST) SGPT/ALT (test code 22 U/L 10-44 N = ALT) ALKALINE 72 U/L 45-120 N PHOSPHATASE (test code = ALKP) PROTHROMBIN [id number] 05:51:00 Test Item Value Reference Range Interpretation Comments PROTHROMBIN TIME 11.7 SECONDS 10.3-12.9 N PATIENT (test code = PTP) INTERNATIONAL 1.03 INR UNIT 0.9-1.11 N The INR is us eful only NORMAL RATIO (test for monit oring code = INR) anticoagulant therapy.It may be unreliable in t he initial phase o f antigoagulation and in unstable patien ts. Indication for Anticoagulation Recommended INR 1. Prevention of v enous thomboembolism 2.0-3.0in high- risk patients; treat ment of venousthrombosi s and pulmonary embol ism aftera course o f heparin; preven tion of systemicembolis m in a variety of cond itions, including atria l fibrillation an d prothetic tissu e heart valves, 2. Pros thetic mechanical hear t valves; 2.5-3.5recurren t systemic emboli sm. THROMBOPLASTIN TIME [id number] 05:51:00 Test Item Value Reference Range Interpretation Comments THROMBOPLASTIN TIME 43.6 SECONDS 23.8-34.8 H INTERPRE TATIVE PARTIAL (test code = DATA: erapeutic PTT) range: Unfractionated heparin:55 - 80 seconds Argatroban:1.5 to 3 times the basel ine PTT CBC W/AUTO [id number] 05:33:00 Test Item Value Reference Range Interpretation Comments WHITE BLOOD CELL (test code = 6.4 x10 3/uL 4.8-10.8 N WBC) RED BLOOD CELL (test code = 5.30 x10 6/uL 4.70-6.10 N RBC) HEMOGLOBIN (test code = HGB) 16.4 g/dL 14.5-20 N HEMATOCRIT (test code = HCT) 47.5 % 42.0-52.0 N MEAN CELL VOLUME (test code = 89.6 fL 80.0-94.0 N MCV) MEAN CELL HGB (test code = MCH) 30.9 pg 27-31 N MEAN CELL HGB CONCENTRATION 34.5 G/DL 33-36.5 N (test code = MCHC) RED CELL DISTRIBUTION WIDTH 12.4 % 12.9-16.9 L (test code = RDW) PLATELET COUNT (test code = 177 150-440 N PLT) MEAN PLATELET VOLUME (test code 10.3 fL 8.9-12.4 N = MPV) NEUTROPHIL % (test code = NT%) 64.4 % 42.2-75.2 N LYMPHOCYTE % (test code = LY%) 27.0 % 20.5-51.1 N MONOCYTE % (test code = MO%) 7.4 % 1.7-9.3 N EOSINOPHIL % (test code = EO%) 0.5 % 0.0-7.0 N BASOPHIL % (test code = BA%) 0.5 % 0-2.5 N NEUTROPHIL # (test code = NT#) 4.12 x10 3/uL 1.80-7.70 N LYMPHOCYTE # (test code = LY#) 1.72 x10 3/uL 1.00-4.80 N MONOCYTE # (test code = MO#) 0.47 x10 3/uL 0.00-0.80 N EOSINOPHIL # (test code = EO#) 0.03 x10 3/uL 0.00-0.45 N BASOPHIL # (test code = BA#) 0.03 x10 3/uL 0.0-0.20 N Notes Date/Time Note Provider Source 2020-04-07 17:09:00-00:00 [id number] [facility] [address] [place] [address] PATIENT NAME: RODRIGO RICCI ADMIT DATE: 04/07/20 ACCOUNT NO: [id number] ROOM NO: P.0631 AGE: 65 REPORT TYPE: OPERATIVE REPORT SEX: M ADMITTING PHYSICIAN:Gildardo Cronin MD ATTENDING PHYSICIAN:Gildardo Cronin MD OPERATION DATE: 04/07/2020 PROCEDURES: 1. Percutaneous coronary intervention to the lef t circumflex artery. 2. Selective coronary angiogram x2. 3. Saphenous vein angiogram x3. 4. Left internal mammary artery, selective angio gram. 5. A 5-Syrian Mynx closure of the right femoral artery. INDICATIONS FOR PROCEDURE: Mr. Rodrigo Ricci is a [age]-year-old gentleman who was transferred from [place], [place] with ventricula r tachycardia. He has got a history of ischemic coronary artery disease and the concern is that he may have a new coronary lesion causing the ventricular ta chycardia. PREPROCEDURE DIAGNOSIS: Ventricular tachycardia with known coronary artery disease. POSTPROCEDURE DIAGNOSIS: Successful stenting of the [place] circumflex artery. SENIOR CONTROL SYSTEMS ENGINEER: Gildardo Cronin MD SKEIN WINDING OPERATOR: None. ANESTHESIA: Moderate sedation. PROCEDURE IN DETAIL: After obtaining inf ormed consent, the patient was brought to the cardiac catheterization laboratory, where the patient was prepped and draped in normal sterile fas hion. A 20 mL of 2% Xylocaine were locally injected using a micropuncture needle, the right femoral artery was cannulated with a 5-Syrian slender sheath. Through this, a JL4 cat heter was used to engage the left coronary ostium and selective angio graphy performed. After this, catheter was exchanged for a 4-Syrian JR4 catheter, which was used to cannulate the right coronary, which was injected. After this, there were 3 saphenous vein grafts, one to the right coronary artery, one pr esumably to the first diagonal and one to the first obtuse marginal, which were selecti vely engaged and injected. After this, the JR4 catheter was taken into the subclavian artery where the left internal mammary artery was selectively engaged and injected. After this, catheter was removed. Findings at this point included a patent left ma in. The LAD had a 40% to 50% proximal lesion. There was a first diagonal that appeared to be interrupted with a strange AVM in the middle of it. I suspec t this may have been an anastomotic site with continuation of th e distal vessel. The mid LAD has a 70% PATIENT NAME: RODRIGO RICCI lesion. After this, the internal mammary artery inserts into the LAD. The left internal mammary artery has good flow do wn the rest of the LAD, which only has mild plaquing. The left circumflex artery has a proximal 80% to 90% lesion before bifurcating into the OM2 and OM3 vessels, which are medium to small caliber. The right artery is 100% occluded. Ther e is a small collateral that goes to an RV branch. The saphenous vein graft t o the right coronary is 100% occluded. The saphenous vein graft to the first diagonal presumably is also occluded. The saphenous vein graft to th e first obtuse marginal is patent with some mild atherosclerotic changes with a small-t o-medium caliber obtuse marginal, which gives collaterals to the right c oronary artery distally. Of note, the right coronary artery gets collaterals from the LAD territory, the circumflex territory as well as the bypass obtus e marginal. The left internal mammary artery is widely patent. At this point, the right cor onary artery is not revascularizable and it is well collateralized. The circumflex appeared to be th e culprit lesion and the diagonal was rather bizarre and will be discusse d further below. After this, heparin was give n for a therapeutic ACT. A 5-Syrian CLS 3.5 guiding catheter was used to cannula te the left main. Through this, a ChoICE floppy was taken through the lesion. The lesion was predilated with an Emerge 2.0 x 12 mm balloon. After this, the area was stente d with a [employer] Synergy 2.5 x 12 mm at 15 atmospheres. After this, delivery system was removed, post-angiogram demonstrated 0% residual stenosis . After this, we attempted to take a ChoICE floppy into the first diagonal to probe the strange interrupted lesion that would not pass. We tried it also with a Fielder XT. Given that the patient actually had JE 2 to 3 flows t hrough this vessel, we decided to stop at this time and removed the wire and guide. After this, the right femoral artery was closed with a 5-Syrian Mynx closure device. There were no complications. Est imated blood loss was less than 20 mL. IMPRESSION: Coronary artery anatomy as described above with successful percutaneous coronary intervention to the proxim al left circumflex artery. PLAN: The patient will go back to his room where he will be restarted on a cardiac diet. We will wean off his amiod arone tomorrow and watch him in 1 to 2 days to ensure that he does not have any further ventricular tachycardia. He will be on dual antiplatelet therapy and statin therapy. Dictated By: Gildardo Cronin MD WT: OP:OSMANY/BRIAN/LEESA Conf#: [id number]/DID#: [id number] Authenticated and Edited by Gildardo Cronin MD O n 04/08/20 9:59:11 AM Electronically Signed by Gildardo Cronin MD on 0 04/08/20 at 1002 PATIENT NAME: RODRIGO RICCI 2020-04-07 10:08:00-00:00 [id number] [facility] [address] [place] [address] [place] [address] PATIENT NAME: RODRIGO RICCI ADMIT DATE: 04/07/20 ACCOUNT NO: [id number] ROOM NO: [id number] AGE: 65 REPORT TYPE: HISTORY AND PHYSICAL SEX: M ADMITTING PHYSICIAN:Gildardo Cronin MD ATTENDING PHYSICIAN:Gildardo Cronin MD ADMISSION DATE: 04/07/2020 ADMITTING PHYSICIAN: Gildardo Cronin MD REASON FOR ADMISSION: 1. Non-ST segment elevation myocardial infarctio n. 2. Ischemic cardiomyopathy. 3. Nonsustained ventricular tachycardia. HISTORY OF PRESENT ILLNESS: This 65-year-old [facility] abigail gentleman has a known history of hypertension, dys lipidemia, coronary artery disease, status post CABG x4 in 2001 and snuff use. The patient was in his usual state of health until April 06 when he developed acute chest tightnes s with diaphoresis after his usual activity. One dose of sublingual nitroglyc jc did not provide any relief. Emergency medical services were activate d and monitoring showed ventricular tachycardia with a rate of 150. The patient was given intravenous amiodarone after which he converted to sinus rhy thm. He was taken to the [facility], where workup showed a n elevated troponin at 2.9, ruling him in for non-ST segment elevat ion myocardial infarction. Echocardiogram showed an ejection fraction of 35% to 40% and moderate-to- severe basal septal, inferior and posterior wall hypokinesis. The wesley ent was started on Lovenox and Plavix. He was transferred to the [facility] for higher level of care. The patient states that he h ad been doing well for 18 years without any episodes of chest pain until the day of admission. PAST MEDICAL HISTORY: 1. Hypertension. 2. Dyslipidemia. 3. Myocardial infarction. 4. Coronary artery disease, 4-vessel CAB G in 2001 at [facility] by Dr. Gallego. He follows up with Dr. Candace Moss of cardiology, the last followup being about 2 years ago. 5. Appendectomy. 6. Cholecystectomy. 7. Hernia repair. 8. There is no history of diabetes, stroke, or c ancer. PAST SURGICAL HISTORY: As above. SOCIAL HISTORY: The patient is and lives at home with his . Uses snuff. Rare alcohol use. PATIENT NAME: RODRIGO RICCI FAMILY HISTORY: Positive for coronary artery dis ease in both his parents and thyroid disease in his mother. MEDICATIONS: Home medications include atorvastat in 10 mg daily, Plavix 75 mg daily, losartan 50 mg daily, aspirin 81 mg daily. In the hospital, he received the above plus Lovenox 90 mg. ALLERGIES: NO KNOWN DRUG ALLERGIES. REVIEW OF SYSTEMS: Detailed review of systems wa s performed. This one episode of chest pain and diaphoresis. Otherwise negativ e. PHYSICAL EXAMINATION: GENERAL: Elderly male, not in any acute distress . VITAL SIGNS: Temperature is 36.6 Celsius, heart rate 57, respiratory rate 16, blood pressure 127/73 and oxygen saturation 94% on room air. Weight is 88 kilograms. Body mass index 27.8. HEENT: Head is atraumatic. Pupils are reactive t o light and accommodation. Extraocular muscles intact. NECK: Supple. No thyromegaly. CARDIOVASCULAR: S1, S2 audible. No murmur, gleason p, or rub could be appreciated. CHEST: Sternotomy. LUNGS: Clear to auscultation. ABDOMEN: Soft, nondistended, and nontender. No o rganomegaly. EXTREMITIES: No edema. Pedal pulses 3+. NEUROLOGIC: No focal deficit. LABORATORY DATA: Sodium 139, potassium 4.2, chlo ride 105, CO2 of 22, blood sugar 100, BUN 8.2, and creatinine 1. Liver func tion tests normal. PTT 43.6, INR 1.03. WBC 6.4, hemoglobin 16.4, hematocrit 4 7.5, and platelets 177. Lab work at the outside hospital showed a troponin o f 0.012, 2.9, 2.7. Urine is negative. DIAGNOSTIC DATA: Echocardiogram shows an ejectio n fraction of 35% to 40%, wzydtzqb-kw-lwqzks basal septal, moderate inferi or wall, pfrvjgbt-ds-xnzdkc posterior wall hypokinesis. Chest x-ray showed mild cardiomegaly. Telemetry over here shows sinus bradycardia with frequent PVCs. ASSESSMENT: 1. Non-ST segment elevation myocardial infarctio n. 2. Ventricular tachycardia, chemically converted to sinus rhythm. 3. Ischemic cardiomyopathy with diminished eject ion fraction and tdzsypuk-eg-yokxuc regional wall motion abnorma lities. 4. Hypertension. 5. Dyslipidemia. 6. Tobacco/snuff use. PLAN: The patient has been ruled in for non-ST segment elevation myocardial infarction and was documented to have ventricula r tachycardia, requiring PATIENT NAME: RODRIGO RICCI amiodarone. The patient has a history of multive ssel CABG in the past. He has been transferred to the [facility] for higher level of care. He will be undergoing coronary angiogram and intervention a s required on April 07. We will continue aspirin, atorv astatin, Plavix, losartan, and nitrates. Start beta blockers. Continue current blood pressure medica tions for his hypertension. Continue IV amiodarone. Deep vein thromb osis prophylaxis, the patient received Lovenox. Gastrointestinal prophylaxis per protoc ol. Plan of care discussed with the consultants. Dictated By: Jose Raul Moore MD WT: HP:PVICENTE/RENNY/LEESA Conf#: [id number]/DID#: [id number] Authenticated and Edited by Jose Raul Moore MD O n 04/13/20 7:02:04 PM Electronically Signed by Jose Raul Moore MD on at 0966 PATIENT NAME: RODRIGO RICCI "
[2023-03-03 04:04] LABS: Hematocrit 39.4 % (39.6-49.0); Lymphocytes % 23.4 % (15.3-44.8); MCV 92.5 fL (80-100); MPV 8.1 fL (7.6-11.3); RBC Red Blood Cell Count 4.27 M/uL (4.33-5.43)
[2023-03-03 04:23] LABS: Potassium 3.9 mEq/L (3.5-5.1); Troponin High Sensitivity 16.1 pg/mL (<58.9)
--- NOTE | 2023-03-03 04:50 | EDPHYS ---
Physician Documentation [facility] Name: Rodrigo Ricci Age: 67 yrs Sex: Male : 1955 Arrival Date: 03/03/2023 Time: 03:14 Bed 17 Private MD: ED Physician Dax So HPI: 03/03 03:16 This 67 yrs old Male presents to ER via Unassigned with complaints of cp. bs3 03:16 67-year-old male history of CAD status post stents status post CABG, hypertension bs3 presents with chest pain since approximately 10 PM yesterday it is improving it was a left-sided chest pressure without any other associated symptoms he took nitroglycerin once without significant relief he denies fevers chills nausea vomiting or anything else bothering him he does think that it is similar to when he required his stent. 03:16 EMS provided 4 baby aspirin prior to arrival. bs3 Historical: - Allergies: 03:31 No Known Allergies; ha1 - Immunization history:: Adult Immunizations up to date. - Social history:: Smoking status: Patient denies any tobacco usage or history of. ROS: 03:16 Constitutional: Negative for fever, chills bs3 03:16 All other systems are negative. Exam: 03:16 Constitutional: This is a well developed, well nourished patient who is awake, alert, bs3 and in no acute distress. Head/Face: Normocephalic, atraumatic. Eyes: Pupils equal round and reactive to light, extra-ocular motions intact. Lids and lashes normal. ENT: mmm, no posterior phyarngeal erythema Neck: Trachea midline, no thyromegaly, no neck stiffness Chest/axilla: Normal chest wall appearance and motion. Nontender with no deformity. No lesions are appreciated. Cardiovascular: Regular rate and rhythm with a normal S1 and S2. symmetric pulses in upper extremities Respiratory: Lungs have equal breath sounds bilaterally, clear to auscultation, no respiratory distress Abdomen/GI: Soft, non-tender, no rebound or guarding Skin: Warm, dry with normal turgor. Normal color with no rashes, no lesions, and no evidence of cellulitis. MS/ Extremity: Pulses equal, no cyanosis. Neurovascular intact. Full, normal range of motion. 03:16 Normal sinus rhythm at [address] elevations or depressions he has T wave inversions in the inferior lateral leads QTc is normal no prior EKG for comparison Vital Signs: 03:15 BP 135 / 74; Pulse 51; Resp 18 S; Temp 97.9; Pulse Ox 99% on R/A; Weight 83.91 kg; ha1 Height 5 ft. 10 in. ; 04:00 BP 130 / 70; Pulse 48; Resp 16; Pulse Ox 98% on R/A; ha1 05:00 BP 121 / 73; Pulse 46; Resp 18 S; Pulse Ox 100% on R/A; ha1 06:00 BP 133 / 71; Pulse 43; Resp 16 S; Pulse Ox 98% on R/A; ha1 03:15 Body Mass Index 26.54 (83.91 kg, 177.8 cm) ha1 MDM: 03:16 Patient medically screened. bs3 03:16 Data reviewed: vital signs, nurses notes. ED course: 67-year-old with chest pain bs3 concerning for ACS given his history we will plan to admit his heart score is approximately 5. 04:48 ED course: initial trop neg, given heart score, will admit.. bs3 06:48 ED course: Patient refused admission he understood the risks and benefits including a bs3 massive heart attack and he was willing to stay for repeat troponin. 06:54 ED course: Repeat troponin is negative or no significant changes I still recommended bs3 admission but the patient refused he understood the risks and benefits he understood that he has a high 30-day morbidity and mortality. 03/03 03:16 Order name: Basic Metabolic Panel; Complete Time: 04:30 bs3 03/03 03:16 Order name: CBC with Diff; Complete Time: 04:11 bs3 03/03 03:16 Order name: Troponin HS; Complete Time: 04:30 bs3 03/03 03:16 Order name: BNP; Complete Time: 04:30 la1 03/03 06:05 Order name: Troponin High Sensitivity; Complete Time: 06:54 bs3 03/03 03:16 Order name: XRAY Chest (1 view) bs3 03/03 03:16 Order name: EKG; Complete Time: 03:16 bs3 03/03 03:16 Order name: Cardiac monitoring; Complete Time: 03:20 bs3 03/03 03:16 Order name: EKG - Nurse/Tech; Complete Time: 03:20 bs3 03/03 03:16 Order name: IV Saline Lock; Complete Time: 03:20 bs3 03/03 03:16 Order name: Labs collected and sent; Complete Time: 03:58 bs3 03/03 03:16 Order name: O2 Per Protocol; Complete Time: 03:20 bs3 03/03 03:16 Order name: O2 Sat Monitoring; Complete Time: 03:20 bs3 Administered Medications: No medications were administered Disposition Summary: 03/03/23 06:55 Discharge Ordered Location: Home(03/03/23 06:55) bs3 Problem: new(03/03/23 06:55) bs3 Symptoms: have improved(03/03/23 06:55) bs3 Condition: Serious(03/03/23 06:55) bs3 Diagnosis - Chest pain, unspecified(03/03/23 06:55) bs3 Followup: bs3 - With: Private Physician - When: 1 - 2 days - Reason: Re-evaluation by your physician Discharge Instructions: - Discharge Summary Sheet bs3 - Nonspecific Chest Pain, Adult bs3 Forms: - Medication Reconciliation Form bs3 - Thank You Letter bs3 - Antibiotic Education bs3 - Prescription Opioid Use bs3 Signatures: Dispatcher [employer] EDMS Honorio Sierra, BIRDCAGE ASSEMBLER-C BIRDCAGE ASSEMBLER-Cla1 Nora Rojo RN RN ha1 Dax So MD MD bs3 Corrections: (The following items were deleted from the chart) 05:12 04:49 Observation bs3 la1 05:12 04:49 Lyle Short bs3 la1 05:12 04:49 Telemetry/MedSurg (observation) bs3 la1 05:12 04:49 Stable bs3 la1 05:12 04:49 new bs3 la1 05:12 04:49 have improved bs3 la1 05:12 04:49 Standard bs3 la1 05:12 04:49 bs3 la1 05:12 04:49 Chest pain, unspecified bs3 la1
--- NOTE | 2023-03-03 04:50 | ER ---
Nurse's Notes [facility] Name: Rodrigo Ricci Age: 67 yrs Sex: Male : 1955 Arrival Date: 03/03/2023 Time: 03:14 Bed 17 Private MD: Diagnosis: Chest pain, unspecified Presentation: 03/03 03:15 Chief complaint: EMS states: 67 year old male reports having chest pain last night ha1 around 9:00 PM. He took Nitroglycerin and helped his pain get better. around 2:00 am his pain came back and it was then when he called us. our arrival his heart rate was low at 42. We gave him 324 mg of Aspirin. after starting an IV we gave him 1 mg of Atropin. 03:15 Coronavirus screen: Vaccine status: Patient reports receiving the 2nd dose of the covid ha1 vaccine. Ebola Screen: No symptoms or risks identified at this time. Risk Assessment: Do you want to hurt yourself or someone else? Patient reports no desire to harm self or others. 03:15 [place] [address] 03:15 Acuity: FLAVIO 3 [facility] 03:15 Initial Sepsis Screen: Does the patient meet any 2 criteria? No. Patient's initial 1 sepsis screen is negative. Does the patient have a suspected source of infection? No. Patient's initial sepsis screen is negative. 03:15 Onset of symptoms was March 03, 2023. [facility] Triage Assessment: 03:15 General: Appears comfortable, Behavior is calm, cooperative. Pain: Complains of pain in ha1 chest Pain does not radiate. Pain currently is 8 out of 10 on a pain scale. Neuro: Level of Consciousness is awake, alert, obeys commands, Oriented to person, place, time, situation. Cardiovascular: Patient's skin is warm and dry. Cardiovascular: Reports chest pain, Heart tones S1 S2 present Rhythm is sinus bradycardia. Respiratory: Airway is patent Respiratory effort is even, unlabored, Respiratory pattern is regular, symmetrical. GI: No signs and/or symptoms were reported involving the gastrointestinal system. : No signs and/or symptoms were reported regarding the genitourinary system. Derm: Skin is pink, warm \T\ dry. Musculoskeletal: Circulation, motion, and sensation intact. Range of motion: intact in all extremities. Historical: - Allergies: 03:31 No Known Allergies; ha1 - Immunization history:: Adult Immunizations up to date. - Social history:: Smoking status: Patient denies any tobacco usage or history of. Screenin:15 [facility] ED Fall Risk Assessment (Adult) History of falling in the last 3 months, ha1 including since admission No falls in past 3 months (0 pts) Confusion or Disorientation No (0 pts) Intoxicated or Sedated No (0 pts) Impaired Gait No (0 pts) Mobility Assist Device Used No (0 pt) Altered Elimination No (0 pt) Score/Fall Risk Level 0 - 2 = Low Risk Oriented to surroundings, Maintained a safe environment, Educated pt \T\ family on fall prevention, incl call for assistance when getting out of bed. 03:15 Tuberculosis screening: No symptoms or risk factors identified. ha1 03:31 Abuse screen: Denies threats or abuse. Denies injuries from another. Nutritional ha1 screening: No deficits noted. Assessment: 03:15 Reassessment: see triage assessment. ha1 04:15 Reassessment: Patient and/or family updated on plan of care and expected duration. Pain ha1 level reassessed. Patient is alert, oriented x 3, equal unlabored respirations, skin warm/dry/pink. Patient denies pain at this time. 05:15 Reassessment: Patient and/or family updated on plan of care and expected duration. Pain ha1 level reassessed. Patient is alert, oriented x 3, equal unlabored respirations, skin warm/dry/pink. Patient denies pain at this time. 06:15 Reassessment: Patient and/or family updated on plan of care and expected duration. Pain ha1 level reassessed. Patient is alert, oriented x 3, equal unlabored respirations, skin warm/dry/pink. Vital Signs: 03:15 BP 135 / 74; Pulse 51; Resp 18 S; Temp 97.9; Pulse Ox 99% on R/A; Weight 83.91 kg; ha1 Height 5 ft. 10 in. ; 04:00 BP 130 / 70; Pulse 48; Resp 16; Pulse Ox 98% on R/A; ha1 05:00 BP 121 / 73; Pulse 46; Resp 18 S; Pulse Ox 100% on R/A; ha1 06:00 BP 133 / 71; Pulse 43; Resp 16 S; Pulse Ox 98% on R/A; ha1 03:15 Body Mass Index 26.54 (83.91 kg, 177.8 cm) ha1 ED Course: 03:15 Patient arrived in ED. rv1 03:15 Arm band placed on left wrist. ha1 03:15 Patient has correct armband on for positive identification. Placed in gown. Bed in low ha1 position. Call light in reach. Side rails up X 1. 03:16 Dax So MD is Attending Physician. bs3 03:17 Nora Rojo, RN is Primary Nurse. ha1 03:31 Triage completed. ha1 03:40 XRAY Chest (1 view) In Process Unspecified. EDMS 03:58 Basic Metabolic Panel Sent. ha1 03:58 CBC with Diff Sent. ha1 03:58 Troponin HS Sent. ha1 04:00 Maintain EMS IV. Dressing intact. Good blood return noted. Site clean \T\ dry. Gauge \T\ rosario 1 site: 20 left forearm.. 04:49 Lyle Short MD is Hospitalizing Provider. bs3 07:01 Primary Nurse role handed off by Nora Rojo RN bp 07:01 Jeremiah Mccain, RN is Primary Nurse. bp 07:06 No provider procedures requiring assistance completed. IV discontinued, intact, ha1 bleeding controlled, No redness/swelling at site. Pressure dressing applied. Administered Medications: No medications were administered Medication: 07:06 VIS not applicable for this client. ha1 Outcome: 04:49 Decision to Hospitalize by Provider. bs3 06:55 Discharge ordered by . bs3 07:06 Discharged to home ambulatory, with family. ha1 07:06 Condition: stable 07:06 Discharge instructions given to patient, family, Instructed on discharge instructions, follow up and referral plans. Demonstrated understanding of instructions, follow-up care. 07:11 Patient left the ED. ha1 Signatures: Dispatcher [employer] EDJeremiah Norton, RN RN bp Nora Rojo, JUDIT RN ha1 Dax So MD MD bs3 Deysi Saldana rv1
[2023-03-03 07:16] VITALS: TEMP 97.9
[2023-03-03 07:20] VITALS: BP 133/71; O2SAT 98
--- NOTE | 2023-03-04 19:10 | RAD REPORT ---
EXAM DESCRIPTION: RAD - Chest Single View - 03/03/2023 3:38 am CLINICAL HISTORY: CHEST PAIN COMPARISON: None. TECHNIQUE: XR CHEST 1 VIEW 03/03/2023 3:16 AM CDT FINDINGS: The heart is enlarged following sternotomy. Lungs are clear without consolidation, atelect asis, mass or edema. There is no pleural effusion. There is no pneumothorax. There are no acute osseo us findings. IMPRESSION: Clear lungs. Electronically signed by: Panda Mcgowan MD 03/03/2023 4:41 AM CDT Due to temporary technical issues with the PACS/Fluency reporting system, reports are being signed by the in house radiologists without review as a courtesy to insure prompt reporting. The interpreting radiologist is fully responsible for the content of the report.
--- NOTE | 2023-03-05 12:09 | EKG ---
Test Date: 2023-03-03 Test Time: 03:14:22 Waste Management Specialist: RUPALI MEASUREMENT RESULTS: Intervals: Rate: 52 AK: 180 QRSD: 110 QT: 476 QTc: 442 [place]ushing: P: 71 AK: 180 QRS: 96 T: 42 INTERPRETIVE STATEMENTS: Sinus bradycardia Inferior infarct, age undetermined Anterior infarct, age undetermined Abnormal ECG No previous ECG available for comparison Electronically Signed On 03-05-23 12:01:18 CDT by Medhat Helms
== END 2023-03-03 07:11 | disposition home or self-care (01) ==
LOC: ER 03:14
DX: R07.89 Other chest pain (principal); I10 Essential (primary) hypertension; Z95.1 Presence of aortocoronary bypass graft; Z95.818 Presence of other cardiac implants and grafts
CPT/HCPCS: 36415; 71045; 80048; 83880; 84484; 85025; 93005; 99284